=== PATIENT | female | born 1970 | race Caucasian/White ===

== ENCOUNTER 2025-06-13 16:12 | Emergency (ER) | payer MEDICARE, SELFPAY ==
[2025-06-13 16:13] VITALS: BP 125/89; PULSE 107; RESP 16; TEMP 36.7; O2SAT 97; BMI 33.3
--- NOTE | 2025-06-13 16:39 | CTR_ITS ---
PROCEDURE INFORMATION: Exam: CT Cervical Spine Without Contrast Exam date and time: 06/13/2025 5:07 PM Age: 55 years old Clinical indication: Injury or trauma; Fall; Blunt trauma TECHNIQUE: Imaging protocol: Computed tomography of the cervical spine without contrast. 358 image(s) are submitted. Radiation optimization: All CT scans at this facility use at least one of these dose optimization techniques: automated exposure control; mA and/or kV adjustment per patient size (includes targeted exams where dose is matched to clinical indication); or iterative reconstruction. COMPARISON: CT head wo con* [id number] 06/13/2025 5:07 PM RADIATION DOSE METRICS: Total DLP (mGy-cm): 241.5 FINDINGS: Bones: No acute fracture. Normal alignment. No significant disc bulge or herniation. No severe spinal canal stenosis. No significant neural foraminal narrowing. Lungs: Lung apices are normal. Soft tissues: Unremarkable. CT/CT cervical spin wo con* [id number] IMPRESSION: No acute cervical spine fracture.
--- NOTE | 2025-06-13 16:39 | CTR_ITS ---
PROCEDURE INFORMATION: Exam: CT Head Without Contrast Exam date and time: 06/13/2025 5:07 PM Age: 55 years old Clinical indication: Injury or trauma; Fall; Blunt trauma (contusions or hematomas) TECHNIQUE: Imaging protocol: Computed tomography of the head without contrast. 108 image(s) are submitted. Radiation optimization: All CT scans at this facility use at least one of these dose optimization techniques: automated exposure control; mA and/or kV adjustment per patient size (includes targeted exams where dose is matched to clinical indication); or iterative reconstruction. COMPARISON: CT cervical spin wo con* [id number] 06/13/2025 5:07 PM RADIATION DOSE METRICS: Total DLP (mGy-cm): 241.5 FINDINGS: Brain: See Bones finding. Cerebral ventricles: No ventriculomegaly. Paranasal sinuses: Soft tissue density in right-sided maxillary sinus, could represent a mucous retention cyst 2.6 cm in diameter. No yanet evidence of chronic sinusitis. No evidence of nasal bone fracture. Mastoid air cells: Visualized mastoid air cells are well aerated. Bones: No evidence of skull fracture or intracranial hemorrhage. No mass effect seen. Soft tissues: Soft tissue swelling in the right supraorbital scalp, likely secondary to recent contusion. CT/CT head wo con* [id number] IMPRESSION: 1. Soft tissue swelling in the right supraorbital scalp, likely secondary to recent contusion. 2. No evidence of skull fracture or intracranial hemorrhage. No mass effect seen.
--- NOTE | 2025-06-13 16:39 | XRR_ITS ---
PROCEDURE INFORMATION: Exam: XR Right Wrist Exam date and time: 06/13/2025 5:15 PM Age: 55 years old Clinical indication: Injury or trauma; Fall; Blunt trauma (contusions or hematomas); Wrist and hand; Right; Additional info: RT hand pain/swelling to RT hand/wrist post fall TECHNIQUE: Imaging protocol: Radiologic exam of the right wrist. 3 image(s) are submitted. Views: 3 or more views. COMPARISON: CR (UP EXM, ) 06/13/2025 5:15 PM FINDINGS: Bones/joints: Normal. Soft tissues: Normal. XR/XR wrist RT min 3V* [id number] IMPRESSION: No acute findings.
--- NOTE | 2025-06-13 16:39 | XRR_ITS ---
PROCEDURE INFORMATION: Exam: XR Right Hand Exam date and time: 06/13/2025 5:15 PM Age: 55 years old Clinical indication: Injury or trauma; Fall; Blunt trauma (contusions or hematomas); Hand; Right; Additional info: RT hand pain/swelling to RT hand/wrist post fall TECHNIQUE: Imaging protocol: Radiologic exam of the right hand. 3 image(s) are submitted. Views: 3 or more views. COMPARISON: CR (UP EXM, ) 06/13/2025 5:15 PM FINDINGS: Bones/joints: subtle lucency projecting over the base of the 3rd proximal phalanx only seen on oblique view, could represent nondisplaced fracture or nutrient canal. Clinical correlation with possible pain in this region is recommended. 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 No radiopaque foreign body or soft tissue swelling seen. Soft tissues: See Bones/joints finding. XR/XR hand RT min 3V* [id number] IMPRESSION: 1. Subtle lucency projecting over the base of the 3rd proximal phalanx only seen on oblique view, could represent nondisplaced fracture or nutrient canal. Clinical correlation with possible pain in this region is recommended. 2. 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 No radiopaque foreign body or soft tissue swelling seen.
--- NOTE | 2025-06-13 16:40 | ED_ITS ---
HPI - Fall 2 General: Chief Complaint: Head Injury Stated Complaint: fall on the concreate Time Seen by Provider: 06/13/25 16:24 Source: patient Mode of arrival: ambulatory Limitations: no limitations History of Present Illness: Patient is a nice 55-year-old female presents to ED today for evaluation following a fall. Patient states she was at the gas station and was attempting to step over the gas pump hose when she accidentally fell. She states she struck her head. No LOC. She states her neck did pop but she has not complaining of pain other than some mild soreness here. She states she fell onto her right hand and is having right hand and wrist pain. No other complaints or injuries. She is not having any back pain. She has been ambulatory without difficulty or assistance since the fall. Tetanus is up-to-date. MD complaint: fall Onset (ago): hour(s) Fall from: standing Fall witnessed: yes, by bystander Place fall occurred: street (gas station) Loss of consciousness: None Prolonged down time: no Symptoms prior to fall: none Context: tripped/slipped Location of injury: head Location of injury - extremities: Right: hand Severity: mild Associated symptoms-after fall: Reports no associated symptoms and neck pain ( sore ); Denies abdominal pain, chest pain, headache(s) (no headache but hematoma noted to forehead), hematuria or lightheadedness Related Data Allergies Allergy/AdvReac Type Severity Reaction Status Date / Time No Known Allergies Allergy Verified 06/13/25 16:23 Review of Systems 2 Eyes: Denies: change in vision, blurry vision, photophobia, eye discharge, floaters or seeing flashes ENMT: Denies: throat pain, odynophagia, ear or mastoid pain, ear discharge, nasal discharge, epistaxis or sinus pain Card: Denies: chest pain, palpitations, lightheadedness, syncope or pre- syncope Resp: Denies: dyspnea or pain on inspiration GI: Denies: abdominal pain : Denies: flank pain or hematuria Musc: Reports: neck pain ( sore ), extremity pain (R hand) and joint pain (R wrist); Denies: back pain, joint swelling or limited range of motion Neuro: Denies: headache(s) (no headache but hematoma noted to forehead), numbness in extremities, weakness in extremities, sensory changes or dizziness Physical Exam 2 Const: COMMON NORMALS: no acute distress, average body habitus, patient oriented x3, no limitations, healthy appearing, alert and well nourished G ENERAL APPEARANCE: cooperative ORIENTATION/CONSCIOUSNESS: Yes awake, Yes oriented to person, Yes oriented to place and Yes oriented to time HENMT: COMMON NORMALS: normocephalic and TM's normal bilaterally HEAD & SCALP: normal to inspection and normocephalic; no Garber's sign, no hematoma and no raccoon eyes HEAD IMAGES: 1. hematoma/abrasion FACE & SINUS: normal facial exam TYMPANIC MEMBRANE: TM's normal bilaterally MOUTH: other (no intraoral injuries noted) Eye: COMMON NORMALS: Equal, round and reactive pupils present and EOMs intact bilaterally GENERAL EYE: appearance normal, both eyes and all related structures and normal light reflex PUPIL: Yes Equal, round and reactive pupils present DIRECT OPHTHALMOSCOPY: Yes normal light reflex Neck/C-Spine: COMMON NORMALS: full ROM GENERAL: Yes normal visual inspection CERVICAL SPINE: Yes cervical ROM normal, No pain with cervical ROM, No Cervical spine tenderness, No step off deformity and No Paracervical muscle tenderness Chest: COMMONS NORMALS: normal inspection of the chest and normal palpation of entire chest wall Resp: COMMON NORMALS: normal respiratory effort and clear to auscultation bilaterally AUSCULTATION: clear to auscultation bilaterally Cardio: COMMON NORMALS: regular rate and regular rhythm RATE: regular rate RHYTHM: regular rhythm GI: COMMON NORMALS: Normal to inspection, nondistended, normoactive bowel sounds present, Soft to palpation, non-tender, No hepatosplenomegaly present and no masses INSPECTION: Yes normal to inspection and No abdominal wall ecchymosis AUSCULTATION: Yes normoactive bowel sounds PALPATION: Yes Soft to palpation and Yes No hepatosplenomegaly present Back/Pelvis: COMMON NORMALS: thoracic and lumbar spine normal to inspection, no thoracic nor lumbar tenderness and thoraco-lumbar ROM normal Extremity: COMMON NORMALS: normal to inspection, full ROM and capillary refill normal GENERAL: Yes normal exam except as noted RIGHT UPPER EXTREMITY: Yes wrist Right wrist: Yes inspection (normal gross inspection), Yes ROM (fairly normal passive ROM) and Yes neurovascular exam (normal) and Yes hand & digits (TTP overlying thenar eminence-no direct tenderness over scaphoid) Right hand and digits: Yes inspection (normal gross inspection), Yes ROM exam (normal), Yes neurovascular exam (normal) and Yes tendon exam (normal) Neuro: TOBIAS COMA SCALE: document GCS findings [place] coma scale eye opening: Spontaneous Tobias coma scale verbal response: Orientated [place] coma scale motor response: Obey commands [place] coma scale total score: 15 COMMON NORMALS: patient oriented x3, CN's II-XII intact bilaterally, moves all extremities, no focal motor deficits, no sensory deficits noted and gait normal SENSORIUM/ORIENTATION: Yes alert, Yes oriented to person, Yes oriented to place and Yes oriented to time SPEECH: speech normal GAIT: Yes Normal gait present Skin: COMMON NORMALS: no rashes or lesions noted GENERAL SKIN EXAM: no rashes or lesions noted TRAUMA: no lacerations or abrasions Course 2 Vital Signs: Vital signs: Vital Signs Temperature 98.1 F 06/13/25 16:13 Pulse Rate 107 H 06/13/25 16:13 Respiratory Rate 16 06/13/25 16:13 Blood Pressure 125/89 06/13/25 16:13 Pulse Oximetry 97 06/13/25 16:13 Oxygen Delivery Me thod Room Air 06/13/25 16:13 MDM - Fall Medical Decision Making CT imaging of her head/cervical spine are unremarkable. I do not visualize any acute fractures involving her hand or wrist. She has no direct tenderness over her scaphoid. Recommend conservative therapies and follow-up with primary care in 1 to 2 weeks if symptoms not seem to be improving. Medical Records I reviewed the patient's medical records. Lab Data Radiology Impressions Cervical Spine CT 06/13/25 16:39 IMPRESSION: No acute cervical spine fracture. Head CT 06/13/25 16:39 IMPRESSION: 1. Soft tissue swelling in the right supraorbital scalp, likely secondary to recent contusion. 2. No evidence of skull fracture or intracranial hemorrhage. No mass effect seen. All radiology interpretation(s) finalized by discharge Discharge Plan Discharge Patient Disposition: Home Clinical Impression: Fall on same level from tripping Hematoma of frontal scalp Qualifiers: Encounter type: initial encounter Qualified Code(s): S00.03XA - Contusion of scalp, initial encounter Contusion of hand, right Qualifiers: Encounter type: initial encounter Qualified Code(s): S60.221A - Contusion of right hand, initial encounter Condition: Stable Discharge Orders: Discharge ED (Routine); Ordered 06/13/25 Ordered By: Acacia Hagen Patient Instructions: Patient Portal & Romaine Instructions Activity Restrictions/Additional Instructions: As we discussed, CT imaging of your head and neck are unremarkable. Do not visualize any acute fractures involving your right hand or wrist. We spoke about conservative therapies. I would like you to follow-up with your primary care provider in 1 to 2 weeks if pain to your hand/wrist does not improve. Print Language: Ukrainian Coding Level of Care Code ED Head Machine Feeder for Tess Suazo
[2025-06-13 18:18] VITALS: BP 129/81; PULSE 96; O2SAT 96
== END 2025-06-13 18:18 | disposition home or self-care (01) ==
PROVIDERS: Emergency Provider Physician Assistant
DX: S00.03XA Contusion of scalp, initial encounter (principal); S60.221A Contusion of right hand, initial encounter; W01.0XXA Fall on same level from slipping, tripping and stumbling without subsequent striking against object, initial encounter
CPT/HCPCS: 70450; 72125; 73110; 73130; 99284